=== PATIENT | male | born 1945 | race Caucasian/White ===

== ENCOUNTER 2019-05-07 13:53 | Emergency (ER) | payer OTHER ==
[2019-05-07 14:18] VITALS: BP 164/104; TEMP 98.9; O2SAT 98
--- NOTE | 2019-05-07 14:36 | RAD ---
EXAM DESCRIPTION: Chest,2 Views CLINICAL HISTORY: 74 years Male, 10 day cough COMPARISON: None. FINDINGS: 2 views/radiographs Heart size and pulmonary vessels are within normal limits. There is no pneumothorax or pleural effusion. The lungs are clear bilaterally. The soft tissues are unremarkable. No acute osseous findings. Median sternotomy. IMPRESSION: No acute cardiopulmonary abnormality. Electronically signed by: Trevon Atkins MD 05/07/2019 2:35 PM SERVICE TECH/WELDER
--- NOTE | 2019-05-07 14:42 | ED.PDOC ---
History of Present Illness - General Chief Complaint: Respiratory Problem Stated Complaint: cough x 10 days Time Seen by Provider: 05/07/19 14:06 Source: patient Exam Limitations: no limitations - History of Present Illness Initial Comments: The patient is a 74-year-old male presented emergency room secondary to a persistent cough for the last 10 days. He saw his primary care doctor [facility] who put him on amoxicillin and some Tessalon Perles 3 days ago but he has not improved. He has not really worsened either. No history of any COPD. No evidence of any current CHF. No shortness of breath just a irritating persistent cough that is mildly productive. No fever at this point. Mild runny nose but no sore throat. Again no chest pain. No syncope. No palpitations. Timing/Duration: other - 10 Days Improving Factors: nothing Worsening Factors: nothing Associated Symptoms: cough Allergies/Adverse Reactions: Allergies NO KNOWN ALLERGY Allergy (Verified 05/07/19 14:02) Home Medications: Ambulatory Orders Azithromycin 500 mg PO DAILY #5 tab 05/07/19 predniSONE [Prednisone] 20 mg PO DAILY #3 tab 05/07/19 Review of Systems - Review of Systems Constitutional: States: malaise EENTM: States: nose congestion Respiratory: States: cough Cardiology: States: no symptoms reported Gastrointestinal/Abdominal: States: no symptoms reported Genitourinary: States: no symptoms reported Musculoskeletal: States: no symptoms reported Skin: States: no symptoms reported Neurological: States: no symptoms reported Endocrine: States: no symptoms reported All other Systems: No Change from Baseline Past Medical History (General) - Patient Medical History Hx Stroke: No Hx of COPD: No Hx Cardiac Disorders: Yes Hx Hypertension: Yes Hx Diabetes: No Hx Cancer: No Surgical History: coronary bypass surgery - Vaccination History Hx Tetanus, Diphtheria Vaccination: No Hx Influenza Vaccination: Yes Hx Pneumococcal Vaccination: Yes Immunizations Up to Date: No - Social History Hx Tobacco Use: Yes Hx Alcohol Use: Yes - Rarely Hx Substance Use: No Hx Substance Use Treatment: No Hx Depression: No - Female History Patient is a Female of Child Bearing Age (10 -59 yrs old): No Patient : No Family Medical History - Family History Mother Family History: No Known Physical Exam - Physical Exam General Appearance: Alert, Comfortable, No apparent distress Eye Exam: bilateral normal Ears, Nose, Throat: hearing grossly normal, normal pharynx, nasal congestion Neck: full range of motion, supple Respiratory: normal breath sounds, no respiratory distress, no accessory muscle use, rhonchi - Mild scattered Cardiovascular/Chest: normal peripheral pulses, no edema, other - Regular rate Peripheral Pulses: radial,right: 2+, radial,left: 2+ Gastrointestinal/Abdominal: non tender, soft Rectal Exam: deferred Back Exam: no CVA tenderness, no vertebral tenderness Extremity: normal range of motion, no pedal edema, normal capillary refill 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 He is failed to improve with amoxicillin. While the source may be viral, he will be covered for atypical bacterial pathologies with azithromycin. He will also be given 1 dose of prednisone here and low-dose prednisone for the next 3 days to help reduce airway inflammation. A humidifier at home may also help symptoms. As far as the cough medication I would recommend plain liquid Robitussin. Motrin can also help reduce inflammation and cough. No evidence of any overt pneumonia. No respiratory distress. Keep follow-up with primary care doctor. ER warnings are given. anum llanes [id number] - Results/Orders Results/Orders: Chest x-ray shows no evidence of any acute pathology. Departure - Departure Clinical Impression: Bronchitis Disposition: Discharge to Home or Self Care Condition: Fair Departure Forms: ED Discharge - Pt. Copy, Patient Portal Self Enrollment Instructions: Acute Bronchitis, Adult (DC) Diet: regular diet Activity: increase activity as tolerated Referrals: Tam Tejeda FNP [Primary Care Provider] - 1-2 Weeks Prescriptions: Azithromycin 500 mg PO DAILY #5 tab predniSONE [Prednisone] 20 mg PO DAILY #3 tab Home Medications: Ambulatory Orders Azithromycin 500 mg PO DAILY #5 tab 05/07/19 predniSONE [Prednisone] 20 mg PO DAILY #3 tab 05/07/19 Additional Instructions: The patient is a 74-year-old male presenting with a persistent cough for the last 10 days. He is failed to improve with amoxicillin. While the source may be viral, he will be covered for atypical bacterial pathologies with azithromycin. He will also be given 1 dose of prednisone here and low-dose prednisone for the next 3 days to help reduce airway inflammation. A humidifier at home may also help symptoms. As far as the cough medication I would recommend plain liquid Robitussin. Motrin can also help reduce inflammation and cough. No evidence of any overt pneumonia. No respiratory distress. Keep follow-up with primary care doctor. ER warnings are given.
[2019-05-07] MEDS: predniSONE 20 MG TAB PO ONE (14:44)
[2019-05-07] MEDS: AZITHROMYCIN 250 MG TAB PO ONE (14:44)
== END 2019-05-07 14:50 | disposition home or self-care (01) ==
LOC: ER 13:53
DX: J40 Bronchitis, not specified as acute or chronic (principal); I51.9 Heart disease, unspecified; I10 Essential (primary) hypertension; Z95.1 Presence of aortocoronary bypass graft; Z87.891 Personal history of nicotine dependence
CPT/HCPCS: 71046; J7512; Q0144